=== PATIENT | female | born 1980 ===

== ENCOUNTER 2021-09-01 11:08 | Outpatient (CLI) | payer OTHER ==
[~2021-09-01 11:08] MED LIST: MULTI-VITAMIN1 EACH PO; PEPCID AC20 MG PO
== END 2021-09-01 11:16 | disposition home or self-care (01) ==
LOC: LAB 11:08
PROVIDERS: ATTEND Obstetrics & Gynecology
DX: Z03.818 Encounter for observation for suspected exposure to other biological agents ruled out (principal); Z20.828 Contact with and (suspected) exposure to other viral communicable diseases

== ENCOUNTER 2021-09-02 04:00 | Inpatient (IN) | payer OTHER ==
[~2021-09-02] VITALS: Ht 165.1 cm; Wt 97.5 kg
== END 2021-09-04 10:38 | disposition home or self-care (01) | DRG 743 ==
LOC: CIR.AMB 04:00 → OB/GYN 14:00 → O/R 14:00 → OB/GYN 17:32
PROVIDERS: ADMIT Obstetrics & Gynecology; ATTEND Obstetrics & Gynecology
PROC: 0UT20ZZ Resection of Bilateral Ovaries, Open Approach (ICD-10-PCS; 2021-09-02)
PROC: 0UT70ZZ Resection of Bilateral Fallopian Tubes, Open Approach (ICD-10-PCS; principal; 2021-09-02 06:30)
DX: D27.0 Benign neoplasm of right ovary (principal); D27.1 Benign neoplasm of left ovary; N83.8 Other noninflammatory disorders of ovary, fallopian tube and broad ligament; D28.2 Benign neoplasm of uterine tubes and ligaments